=== PATIENT | male | born 1995 | race American Indian/Alaskan Native ===

== ENCOUNTER 2017-05-06 11:16 | Emergency (ER) | payer OTHER ==
[2017-05-06 11:25] VITALS: BP 110/71; PULSE 62; RESP 16; TEMP 97.7; O2SAT 99
--- NOTE | 2017-05-06 12:00 | RAD ---
PROCEDURE: Right Index finger radiographs. HISTORY: pain s.p injury COMPARISON: None available. FINDINGS: RIGHT INDEX FINGER: Faint linear lucency involving the the lateral distal aspect of the 2nd tuft may reflect vascular groove however nondisplaced fracture cannot be entirely excluded. Correlate with physical exam. Remainder of the right hand (as seen on the AP view) grossly intact. JOINTS: No dislocation. SOFT TISSUES: Mild soft tissue swelling. No evidence of radiopaque foreign body. OTHER FINDINGS: None. IMPRESSION: Faint linear lucency involving the the lateral distal aspect of the 2nd tuft may reflect vascular groove however nondisplaced fracture cannot be entirely excluded. Correlate with physical exam. Mild soft tissue swelling.
--- NOTE | 2017-05-06 12:11 | C.PDOC ---
History Of Present Illness 22 year old male presents to the ED with complaints of pain to right index finger and laceration since yesterday. Patient states while at work a heavy object rolled over his finger. When he arrived home, he soaked the finger and placed a band-aid around the laceration. Patient denies weakness, numbness, or other complaints at this time. Time Seen by Provider: 05/06/17 11:26 Chief Complaint (Nursing): Abnormal Skin Integrity History Per: Patient History/Exam Limitations: no limitations Onset/Duration Of Symptoms: Hrs Current Symptoms Are (Timing): Still Present Quality: "Pain" Recent travel outside of the [place]: No Past Medical History Reviewed: Historical Data, Nursing Documentation, Vital Signs Vital Signs: Last Vital Signs Temp 97.7 F 05/06/17 11:19 Pulse 62 05/06/17 11:19 Resp 16 05/06/17 11:19 BP 110/71 05/06/17 11:19 Pulse Ox 99 05/06/17 13:41 Family History: States: Unknown Family Hx - Social History Hx Alcohol Use: No Hx Substance Use: No - Immunization History Hx Tetanus Toxoid Vaccination: No Review Of Systems Constitutional: Negative for: Fever, Chills Musculoskeletal: Positive for: Hand Pain (right index finger pain and laceration ) Neurological: Negative for: Weakness, Numbness Physical Exam - Physical Exam Appears: Non-toxic, No Acute Distress Skin: Warm, Dry, Other (1cm curved laceration to dorsal PIP of right index finger with contused tissue and maceration surrounding the area) Head: Atraumatic, Normacephalic Eye(s): bilateral: Normal Inspection Neck: Normal ROM Chest: Symmetrical Respiratory: No Wheezing Extremity: Normal ROM, Tenderness (mild tenderness to PIP of right second digit with laceration), Capillary Refill (good capillary refill, less than two seconds ), No Deformity, No Swelling Pulses: Left Radial: Normal, Right Radial: Normal Neurological/Psych: Oriented x3, Normal Speech Gait: Steady ED Course And Treatment O2 Sat by Pulse Oximetry: 99 (room air ) Pulse Ox Interpretation: Normal - Other Rad Right Index finger radiographs X-Ray: Viewed By Me, Read By Radiologist Interpretation: FINDINGS: RIGHT INDEX FINGER: Faint linear lucency involving the the lateral distal aspect of the 2nd tuft may reflect vascular groove however nondisplaced fracture cannot be entirely excluded. Correlate with physical exam. Remainder of the right hand (as seen on the AP view) grossly intact. JOINTS: No dislocation. SOFT TISSUES: Mild soft tissue swelling. No evidence of radiopaque foreign body. OTHER FINDINGS: None. IMPRESSION: Faint linear lucency involving the the lateral distal aspect of the 2nd tuft may reflect vascular groove however nondisplaced fracture cannot be entirely excluded. Correlate with physical exam. Mild soft tissue swelling. Progress Note: An X-ray of the right index finger was ordered. Patient was given a tetanus shot. Chisholm bound was used to repair laceration and an aluminum finger splint was applied. Disposition Counseled Patient/Family Regarding: Need For Followup, Rx Given - Disposition Disposition: HOME/ ROUTINE Disposition Time: 12:06 Condition: STABLE Additional Instructions: Keep area clean and dry. May wash gently with soap and water, do not use alcohol or iodine solution. Change dressing 1-2 times daily. Skin glue was used to close your wound, do not apply ointment to area as it may dissolve glue. Glue patch will gradually fall off in few days. Instructions: Skin Adhesive Care (ED) Forms: [facility] ([place]), Work Excuse - POA Present On Arrival: None - Clinical Impression Clinical Impression: Finger laceration, Finger contusion - PA / ROUSTABOUT PUSHER / Resident Statement MD/DO has reviewed & agrees with the documentation as recorded. - Scribe Statement The provider has reviewed the documentation as recorded by the Scribe Margarita Samayoa All medical record entries made by the Scribe were at my direction and personally dictated by me. I have reviewed the chart and agree that the record accurately reflects my personal performance of the history, physical exam, medical decision making, and the department course for this patient. I have also personally directed, reviewed, and agree with the discharge instructions and disposition.
== END 2017-05-06 12:25 | disposition home or self-care (01) ==
LOC: C.ER 11:16
DX: S61.210A Laceration without foreign body of right index finger without damage to nail, initial encounter (principal); W22.8XXA Striking against or struck by other objects, initial encounter; Y92.89 Other specified places as the place of occurrence of the external cause; Y99.0 Civilian activity done for income or pay